=== PATIENT | female | born 1995 | race Caucasian/White ===

== ENCOUNTER 2016-06-20 09:42 | Outpatient (CLI) | payer OTHER, MEDICAID ==
[2016-06-20 10:24] VITALS: BMI 29.2
[2016-06-20 13:28] LABS: PH,URINE 6.5 (5.0-8.0); SPECIFIC GRAVITY 1.015 (1.001-1.030); URINE BILIRUBIN NEGATIVE (NEGATIVE); URINE BLOOD NEGATIVE (NEGATIVE); URINE GLUCOSE (UA) NEGATIVE (NEGATIVE); URINE LEUKOCYTE ESTERASE NEGATIVE (NEGATIVE); URINE NITRITE NEGATIVE (NEGATIVE); URINE PROTEIN NEGATIVE (NEGATIVE); URINE UROBILINOGEN NORMAL (0-1 mg/dl)
[2016-06-20 13:31] LABS: URINE APPEARANCE CLEAR; URINE COLOR YELLOW
[2016-06-20 14:08] LABS: URINE BACTERIA RARE; URINE EPITHELIAL CELLS 0-1 /hpf; URINE RBC 0 /hpf; URINE WBC NEG /hpf
== END 2016-06-20 14:30 | disposition home or self-care (01) ==
LOC: FBC 09:42 → FBCOUT 09:42
PROVIDERS: ATTEND Family Medicine
DX: O26.899 Other specified pregnancy related conditions, unspecified trimester (principal); Z3A.00 Weeks of gestation of pregnancy not specified
CPT/HCPCS: 81001; 59025; 81002; G0463

== ENCOUNTER 2016-06-20 23:43 | Inpatient (IN) | payer OTHER, MEDICAID ==
[2016-06-20 23:55] VITALS: BMI 29.2
[2016-06-21] MEDS ORDERED: OXYTOCIN IN LR 500 ML IV ONE (01:05)
[2016-06-21] MEDS ORDERED: IV START KIT ONE (01:10)
[2016-06-21] MEDS ORDERED: OXYTOCIN 10 UNITS/ML VIAL ONE (01:10)
[2016-06-21] MEDS ORDERED: MINERAL OIL 25 ML BOT ONE (01:10)
[2016-06-21] MEDS ORDERED: LIDOCAINE 1% (PRES FREE) 30 ML VIAL ONE (01:11)
[2016-06-21] MEDS ORDERED: LIDOCAINE Viscous 2% 15 ML UDCUP ONE (01:11)
[2016-06-21] MEDS ORDERED: PUMP TUBING ONE (01:11)
[2016-06-21] MEDS: LACTATED RINGERS 1,000 ML IV PRN ×3 (01:30→03:50)
[2016-06-21] MEDS ORDERED: EPIDURAL PUMP SET ONE (01:34)
[2016-06-21] MEDS ORDERED: FENTANYL/ROPIVACAINE EPIDURAL 250 ML EP ONE (01:34)
[2016-06-21 01:40] LABS: HEMOGLOBIN 12.8 gm/l (12.0-16.0); MEAN CELL VOLUME 86.8 fl (81.0-99.0); MEAN CORPUSCULAR HEMOGLOBIN 29.2 pg (27.0-31.0); MEAN CORPUSCULAR HGB CONC 33.7 g/dl (33.0-37.0); RED CELL DISTRIBUTION WIDTH 14.4 % (11.5-14.5)
[2016-06-21] MEDS: FENTANYL/ROPIVACAINE EPIDURAL 250 ML EP SCH ×2 (02:08→03:29)
[2016-06-21] MEDS ORDERED: ROPIVACAINE 0.5% 30 ML VIAL ONE (02:21)
[2016-06-21] MEDS ORDERED: EPIDURAL PROCEDURE TRAY ONE (02:22)
[2016-06-21] MEDS ORDERED: NALOXONE HCL 0.4 MG/ML VIAL IV PRN (03:13)
[2016-06-21] MEDS ORDERED: EPHEDRINE SULFATE 50 MG/ML 1ML VIAL IV PRN (03:13)
[2016-06-21] MEDS ORDERED: LACTATED RINGERS 500 ML IV PRN (03:13)
[2016-06-21] MEDS ORDERED: DIPHENHYDRAMINE HCL 50 MG/1 ML VIAL IV PRN (03:13)
[2016-06-21] MEDS ORDERED: METOCLOPRAMIDE HCL 5 MG/ML 2ML VIAL IV PRN (03:13)
[2016-06-21] MEDS ORDERED: SODIUM CHLORIDE 0.9% 500 ML IV PRN (03:13)
[2016-06-21] MEDS ORDERED: ONDANSETRON 4 MG/2ML 2 ML VIAL IV PRN (03:13)
[2016-06-21] MEDS ORDERED: NALBUPHINE HCL 20 MG/ML AMP IV PRN (03:13)
--- NOTE | 2016-06-21 03:45 | PCMAN ---
OB Admission Note - History : 1 Term: 0 : 0 Abortions (S&E): 0 Livin Gestational Age (weeks): 40 Days (#/7): 2 Admit Cervical Dilation:: 4 Admit Cervical Effacement (%):: 90 Admit Station:: -2 Admit Presentaton:: vtx Membrane Status: Ruptured Rupture (Date): 06/21/16 Rupture (Time): 00:52 Membranes Comment:: clear Labor Onset (Date): 06/21/16 Labor Onset (Time): 00:00 Contractions: Yes Contraction Frequency:: q 2 Heart Rate:: 130 Status:: category 1-2 EFW:: 7.5 Summary of Course:: Uncomplicated course. Dates by LMP/conception, confirmed by US. SHe had a thickened nuchal fold on 20 wk US so she was referred to [facility] and US there was normal. - Labs Blood Type: A (+) positive Hct/Hgb:: 38/12.8 Rubella Status: Immune GBS Status: Negative Abnormal Labs: None Other Labs:: 1 hr GTT 82 - Physical Exam General: Afebrile, Mild Distress Psych/Mental Status: Mood/Affect Appropriate, Anxious Neurological: Grossly Intact, Alert, Oriented x 4, Normal Speech, Normal Reflexes, Cranial Nerves 3-12 Intact HEENT: Atraumatic, PERRLA, EOMI, Mucous membr. moist/pink Lungs: Clear to Auscultation Bilaterally Cardiovascular: Regular Rate and Rhythm, No Murmur Abdomen: Normal Bowel Sounds Genitourinary: Normal Female Genitalia Extremities: Full ROM, Edema (trace at ankkles) Skin: Normal Color, Warm, Dry, Intact, No Rash - Problems (1) Post term over 40 weeks Status: Acute Code: O48.0 Assessment/Plan: Very active labor, rapidly reached complete but epidural so dense she is unable to feel how to push. Epidural flow rate reduced and will try pushing when she has some feeling return. (2) Intrauterine in teenager Status: Acute Code: O09.619 Assessment/Plan: No complications during . (3) History of depression Status: Acute Code: Z86.59 Assessment/Plan: no treatment required during
--- NOTE | 2016-06-21 07:07 | PCMDEL ---
Delivery Note - Labor 1st stage (hr/min):: 6 hr/ 20 min 2nd stage (hr/min):: 3 hr/ 41 min 3rd stage (hr/min):: 5 min Total (hr/min):: 10 hr/ 6 min Pushed (hr/min):: 1 hr/ 20 min - Delivery Delivery (Date): 06/21/16 Delivery (Time): 06:20 Gender: Male Presentation: Cephalic Position: OA Operative Delivery:: Vacuum (3 pulls ) Umbilical Cord: 3 Vessel Delayed Cord Clamping:: 2-3 min 1 Minute Total: 9 5 Minute Total: 9 Placenta:: intact EBL:: 200 Perineum:: right vaginal/labial laceration Suture:: 2-0 chromic Anesthesia/Meds:: Epidural Length ROM:: 5 hr/ 28 min Comments:: 1st 2 vacuum attempts came off due to the scalp electrode. When I placed the vacuum it felt like the electrode was lateral to the vacuum but since it popped off twice I removed the electrode for the third pull and delivered. Right vaginal lac repaired successfully. She had a very dense epidural. We tried pushing for an hour after she reached complete but she could not feel anything and made little effort so I turned down the epidural and waited for her to get some feeling back which took almost 2 hours. heart tones were showing decels with contractions during pushing and the baseline had gone up from 130 to 145-150 so decision made for vacuum.
[2016-06-21] MEDS ORDERED: OXYCODONE HCL 5 MG TABLET PO PRN (07:10)
[2016-06-21] MEDS ORDERED: LANOLIN 50 APPLIC/7G TUBE TP PRN (07:10)
[2016-06-21] MEDS ORDERED: ACETAMINOPHEN 325 MG TABLET PO PRN (07:10)
[2016-06-21] MEDS ORDERED: CALCIUM CARBONATE 500 MG TAB.CHEW PO PRN (07:10)
[2016-06-21] MEDS ORDERED: BENZOCAINE/MENTHOL 60 APPLIC/BOT TP PRN (07:10)
[2016-06-21] MEDS: IBUPROFEN 800 MG TABLET PO SCH ×4 (08:13→21:37)
[2016-06-21] MEDS: DOCUSATE SODIUM 100 MG CAPSULE PO SCH (08:13)
[2016-06-21] MEDS: PRENATAL VIT/FE FUMARATE/FA 1 TABLET PO SCH (08:13)
[2016-06-21] MEDS ORDERED: FLU VACC 2016-17 (36MO-64Y)/PF 60 MCG/0.5 ML SYRINGE IM V ONE (08:23)
[2016-06-21] MEDS ORDERED: PNEUMOCOCCAL 23-VAL P-SAC VAC 0.5 ML VIAL IM V ONE (08:23)
[2016-06-21] MEDS ORDERED: FERROUS SULFATE (65 Fe) 325 MG TABLET PO SCH (09:00)
[2016-06-21 09:08] LABS: AMPHETAMINES/METHAMPHETAMINES NEGATIVE (NEGATIVE); COCAINE NEGATIVE (NEGATIVE); MARIJUANA NEGATIVE (NEGATIVE); METHADONE NEGATIVE (NEGATIVE); OPIATES NEGATIVE (NEGATIVE); TRICYCLIC ANTIDEPRESSANTS NEGATIVE (NEGATIVE)
[2016-06-21] MEDS: LACTATED RINGERS 1,000 ML IV SCH (15:13)
[2016-06-21] MEDS: OXYCODONE/ACETAMINOPHEN 5/325 MG TABLET PO PRN (20:15)
[2016-06-22] MEDS: IBUPROFEN 800 MG TABLET PO SCH ×3 (04:01→16:59)
[2016-06-22 06:36] LABS: HEMATOCRIT 29.1 % (37.0-47.0); HEMOGLOBIN 9.6 gm/l (12.0-16.0)
[2016-06-22] MEDS: PRENATAL VIT/FE FUMARATE/FA 1 TABLET PO SCH (11:19)
[2016-06-22] MEDS: DOCUSATE SODIUM 100 MG CAPSULE PO SCH (11:19)
--- NOTE | 2016-06-22 12:06 | PDOC44 ---
- Subjective Day: 1 Reports Flatus, Reports Pain Tolerable, Reports , Reports Lochia Light, Reports Tolerating Regular Diet, Denies Nausea - Objective Temp Pulse Resp BP Pulse Ox 98.1 F 80 16 127/73 06/22/16 08:56 06/22/16 08:56 06/22/16 08:56 06/22/16 08:56 Lab Results 06/22/16 06:05 Hgb 9.6 L D Hct 29.1 L Current Medications Generic Name Dose Route Start Last Admin Trade Name Freq PRN Reason Stop Dose Admin Acetaminophen 325 - 650 mg 06/21/16 07:10 Tylenol PO Q4H PRN Pain (Mild) Benzocaine/Menthol 1 applic 06/21/16 07:10 06/21/16 08:41 Dermoplast TP 1 bot PRN PRN Administration Patient Comfort Calcium Carbonate/Glycine 500 - 1,000 mg 06/21/16 07:10 Tums PO BID PRN Indigestion Docusate Sodium 100 mg 06/21/16 09:00 06/22/16 11:19 Colace PO 100 mg DAILY ZEESHAN Administration Emollient Ointment 1 applic 06/21/16 07:10 [id number] TP PRN PRN sore nipples Ibuprofen 800 mg 06/21/16 07:10 06/22/16 11:19 Motrin PO 800 mg Q6H ZEESHAN Administration Multivi/Iron Carb/Fe Sulf/FA/Prenat 1 tab 06/21/16 09:00 06/22/16 11:19 Plus PO 1 tab DAILY ZEESHAN Administration Oxycodone HCl 5 - 10 mg 06/21/16 07:10 Roxicodone PO Q3H PRN Pain (Severe) Oxycodone/Acetaminophen 1 - 2 tab 06/21/16 07:10 06/21/16 20:15 Percocet 5/325 PO 1 tab Q4H PRN Administration Pain (Moderate) Sodium Chloride 10 ml 06/21/16 01:05 06/21/16 07:41 Normal Saline 10ml Flush IV 10 ml PRN PRN Administration IV Flush Sodium Chloride 10 ml 06/21/16 09:00 06/21/16 15:38 Normal Saline 10ml Flush IV 10 ml Q8HR ZEESHAN Administration - Physical Exam General: Afebrile, No Acute Distress Psych/Mental Status: Mood/Affect Appropriate, Flat Affect Neurological: Grossly Intact, Alert, Normal Speech, Normal Reflexes, Cranial Nerves 3-12 Intact HEENT: Atraumatic, PERRLA, EOMI, Mucous membr. moist/pink Lungs: Clear to Auscultation Bilaterally Cardiovascular: Regular Rate and Rhythm, No Murmur Breast: Soft, Skin intact, Nipples Intact, No Nipples Cracked Fundus: Firm, Below Umbilicus Abdomen: Normal Bowel Sounds Genitourinary: Normal Female Genitalia, Edema (moderate) Lochia: Light Extremities: Edema (1+) - Problems:Assessment/Plan (1) History of depression Status: Acute Assessment/Plan: no signs of post depression at this time. (2) Vacuum extraction, delivered, current hospitalization Status: Acute Assessment/Plan: Successful vacuum extraction for vaginal delivery, recovery going well. Continue routine care. (3) Obstetric vaginal laceration, delivered, current hospitalization Status: Acute Assessment/Plan: low vaginal laceration, healing well, no complications. Disposition: Stable, Anticipate DC Home Tomorrow
[2016-06-22] MEDS: OXYCODONE/ACETAMINOPHEN 5/325 MG TABLET PO PRN (14:58)
[2016-06-23 08:47] VITALS: BP 129/75
--- NOTE | 2016-06-23 11:54 | PDOC39B ---
Hospital Course: ADMIT DATE: 06/21/16 DISCHARGE DATE: 06/23/16 ADMISSION DIAGNOSES: Post term , Teen , History of Depression PROCEDURES: Vacuum assisted vaginal delivery, repair of right vaginal laceration HISTORY OF PRESENT ILLNESS: 20 year old G1 T0 L0 at 40 weeks 3 days presenting with active labor, required epidural for pain management which was so dense she could not feel anything to push so I turned down the epidural and waited for her to get some feeling but some signs of distress were developing and she still didn't have the strength need to push him out so I delivered using the vacuum without complication. There were 2 pop-offs and the last pull resulted in delivery. HOSPITAL COURSE: The patient had an uncomplicated post course. By day of discharge the patient is ambulating, eating, voiding, and passing flatus without difficulty. Pain is controlled with medication and lochia is appropriate. She is [] - Physical Exam Vital Signs: Temp Pulse Resp BP Pulse Ox 98.0 F 88 18 129/75 06/23/16 08:30 06/23/16 08:30 06/23/16 08:30 06/23/16 08:30 General: Afebrile, No Acute Distress Psych/Mental Status: Mood/Affect Appropriate, Tearful, Other (appearing tired), No Depressed Neurological: Alert, Oriented x 4 Lungs: Clear to Auscultation Bilaterally Cardiovascular: Regular Rate and Rhythm, No Murmur Breast: Soft, Nipples Intact, No Nipples Cracked Fundus: Firm, Midline, At Umbilicus, Right of Midline Abdomen: Normal Bowel Sounds Genitourinary: Normal Female Genitalia, No Edema Lochia: Light Extremities: Full ROM, No Edema Skin: Normal Color, Warm, Dry, Intact, No Rash Wound: Dressing Clean/Dry/Intact - Discharge Diagnosis (1) History of depression Status: Acute Assessment/Plan: High risk for post depression, she denies today but I will see her in a few days and recheck. (2) Vacuum extraction, delivered, current hospitalization Status: Acute Assessment/Plan: Successful vacuum extraction for vaginal delivery, recovery going well. Discharge today. (3) Obstetric vaginal laceration, delivered, current hospitalization Status: Acute Assessment/Plan: low vaginal laceration, healing well, no complications. - Discharge Plan Condition: Good Disposition: Home Instruction Forms: Vaginal Discharge Instructions Prescriptions: Docusate Sodium [COLACE 100 MG CAPSULE (SHF)] 100 mg PO DAILY #15 capsule Ibuprofen [IBUPROFEN 800 MG TABLET (F)] 800 mg PO Q6H #30 tablet Oxycodone HCl/Acetaminophen [PERCOCET 5/325 MG TABLET (F)] 1 - 2 tab PO Q4H PRN #20 tablet PRN Reason: Pain (Moderate) Cholecalciferol (Vitamin D3) [Vitamin D3] 5,000 units PO X1 #100 capsule Follow-Up: Zenaida Kumar MD [Primary Care Provider] - In 6 weeks
[2016-06-23] MEDS: PRENATAL VIT/FE FUMARATE/FA 1 TABLET PO SCH (14:28)
== END 2016-06-23 13:13 | disposition home or self-care (01) | DRG 775 ==
LOC: FBCOUT 23:43 → FBC 23:43 → FBCOUT 06-21 01:06 → FBC 06-21 01:06
PROVIDERS: ADMIT Family Medicine; ATTEND Family Medicine
PROC: 10D07Z6 Extraction of Products of Conception, Vacuum, Via Natural or Artificial Opening (ICD-10-PCS; principal; 2016-06-21)
DX: O48.0 Post-term pregnancy (principal); O99.344 Other mental disorders complicating childbirth; F32.9 Major depressive disorder, single episode, unspecified; O66.5 Attempted application of vacuum extractor and forceps; O76 Abnormality in fetal heart rate and rhythm complicating labor and delivery; Z3A.40 40 weeks gestation of pregnancy; Z37.0 Single live birth